=== PATIENT | female | born 1985 | race Caucasian/White ===

== ENCOUNTER 2023-10-16 10:58 | Emergency (ER) | payer OTHER, SELFPAY ==
[2023-10-16 12:20] VITALS: BP 137/86; PULSE 88; RESP 18; TEMP 36.7; O2SAT 98; BMI 25.7
[2023-10-16 12:43] LABS: UTC Strep Screen (Rapid) Positive (Negative)
--- NOTE | 2023-10-16 12:52 | ED_ITS ---
Discharge Plan Disposition Patient Disposition: Home, Self-Care Condition: Good Prescriptions Prescriptions: New amoxicillin 875 mg tablet 875 mg PO BID Qty: 20 0RF Referrals Follow up/Referrals: Reilly Nunes [Primary Care Provider] - See instructions Activity Restrictions/Add. Instructions Additional Instructions/Restrictions: *Monitor Temp, Over the counter Motrin or Tylenol as directed/as needed Tylenol every 4 hours and Motrin every 6 hours (as long as your family doctor has told you that you can take it) for fever or pain. and straight to ER if unable to lower temp less than 101.0 after medication given *Warm salt water gargles may help to soothe the throat *Throat Lozenges? *Warm fluids like tea with honey may help to soothe the throat? *Sleep elevated *Humidifier/Vaporizer *If you did not take Penicillin shot or was unable to, start taking antibiotic immediately and make sure that you take it for the FULL length of time although you should start to feel better in 24-48 hours *change toothbrush and toothpaste 24-48 hours after starting to take antibiotics so you do not reinfect yourself Monitor Temp. Tylenol and/or Ibuprofen as needed. ER if fever is no less than 101 despite alternating Tylenol and Ibuprofen * Encourage fluids, water, Gatorade, powerade, pedialyte if /toddler/or child *Cold fluids, popsicles and ice cream may feel good on his throat Follow up IMMEDIATELY for new or worsening symptoms or no Noticeable improvement over the next 48-72 hours. 911 for difficulty breathing or swallowing Clinical Impressions Clinical Impression: Strep throat Instructions Patient Instructions: DI for Strep Throat, Strep Throat Discharge ED Provider: Sparkle Dias [facility] [place] HPI General Stated complaint: sore throat, ear pain Mode of Arrival: Ambulatory Source of Information: Patient Limitations: No Limitations Time Seen by Provider: 10/16/23 12:52 Description of Symptoms (Recalled from Triage Doc. by RN): PATIENT C/O SORE THROAT X 2 DAYS HEENT Symptoms (Recalled from RN notes): Yes Resp Symptoms (Recalled from RN notes): No Skin Symptoms (Recalled from RN notes): No MS Symptoms (Recalled from RN notes): No Functional Status (Recalled from RN notes): WNL History of Present Illness Provider Complaint: Patient states that she has had sore throat for the last couple of days and pain and pressure in her ears states that she feels like she has strep throat Related Data Previous Rx's Medication Instructions Recorded amoxicillin 875 mg tablet 875 mg PO BID #20 tabs 10/16/23 Allergies Allergy/AdvReac Type Severity Reaction Status Date / Time No Known Allergies Allergy Verified 05/22/23 09:47 Worker's Comp Is this a Worker's Comp case?: No [facility]SH [facility] Disclaimer: The information contained in this section may have been updated after the patient was seen, as this information can be updated by other users. Social History Smoking Status: Unknown if ever smoked alcohol intake: never current occupational status: employed Travel in the last 8 weeks: None ROS Obtained: Yes All systems reviewed & no additional complaints except as doc umented and Yes Systems reviewed as appropriate & no additional complaints except as documented Constitutional Constitutional: Reports system reviewed and no additional complaints, except as documented and Reports as per HPI ENT Ears, Nose, Mouth, and Throat: Reports system reviewed and no additional complaints, except as documented, Reports as per HPI, Reports otalgia and Reports sore throat Cardiovascular Cardiovascular: Reports system reviewed and no additional complaints, except as documented and Reports as per HPI Respiratory Respiratory: Reports system reviewed and no additional complaints, except as documented and Reports as per HPI Gastrointestinal Gastrointestingal: Reports system reviewed and no additional complaints, except as documented and as per HPI Physical Exam General General appearance: alert and in no apparent distress ENT ENT exam: Present mucous membranes moist Expanded ENT Exam TM/Canal exam: Right TM: erythema Throat exam: Present tonsillar erythema Respiratory Respiratory exam: Present normal lung sounds bilaterally; Absent respiratory distress or wheezes Cardiovascular Cardiovascular exam: Present regular rate, normal rhythm and normal heart sounds Abdominal Exam Abdominal exam: Present soft and normal bowel sounds; Absent distention or tenderness Neurological Exam Neurological exam: Present alert, oriented X3 and normal gait Medical Decision Making Lee Inquiry Pt receiving controlled substance: No Lee was queried for this patient: No Vital Signs: 10/16/23 12:20 Temperature 98.1 F Temperature Source Oral Pulse Rate [Left Brachial] 88 Respiratory Rate 18 Blood Pressure [Left Arm] 137/86 Blood Pressure Mean [Left Arm] 103 Blood Pressure Source [Left Arm] Automatic Cuff Blood Pressure Position [Left Arm] Sitting 02 Sat by Pulse Oximetry 98 Oxygen Delivery Method Room Air Lab Data Lab results reviewed: Yes I reviewed the patient's lab results. Lab Results 10/16/23 12:25: Strep Scn [facility] Positive A
[2023-10-16 13:00] VITALS: BP 137/86; PULSE 88; RESP 18; TEMP 36.7; O2SAT 98
== END 2023-10-16 13:03 | disposition home or self-care (01) ==
PROVIDERS: Emergency Provider Nurse Practitioner; PCP Pediatrics
DX: J02.0 Streptococcal pharyngitis (principal); R07.0 Pain in throat; H92.03 Otalgia, bilateral
CPT/HCPCS: 87880; 99204; 99212; G0463

== ENCOUNTER 2023-10-25 13:30 | Outpatient (CLI) | payer OTHER, SELFPAY ==
--- NOTE | 2023-10-25 13:34 | MM_ITS ---
PROCEDURE INFORMATION: Exam: Bilateral Screening 3D Mammography Exam date and time: 10/25/2023 1:26 PM Age: 37 years old Clinical indication: Screening examination TECHNIQUE: Imaging protocol: Bilateral Screening tomosynthesis and 2D mammography including computer-aided detection (CAD) when performed. COMPARISON: No relevant prior studies available. FINDINGS: MAMMOGRAPHY: Breast composition: The breasts are heterogeneously dense, which may obscure small masses. Mass: None. Architectural distortion: None. Calcifications: No suspicious calcifications. Asymmetric density: None. Skin thickening: None. Axillary adenopathy: None. Implants: Subpectoral silicone breast implants are present. The contours are smooth. IMPRESSION: No mammographic evidence of malignancy. Annual screening is recommended unless otherwise clinically indicated. ASSESSMENT: BI-RADS Category 1: Negative
== END 2023-10-25 23:59 ==
LOC: RAD 13:31
PROVIDERS: PCP Pediatrics; Visit Provider Pediatrics
DX: Z12.31 Encounter for screening mammogram for malignant neoplasm of breast (principal)
CPT/HCPCS: 77063; 77067

== ENCOUNTER 2024-07-03 16:15 | Emergency (ER) | payer OTHER, SELFPAY ==
--- NOTE | 2024-07-03 16:19 | XR_ITS ---
PROCEDURE INFORMATION: Exam: XR Right Wrist Exam date and time: 07/03/2024 4:42 PM Age: 38 years old Clinical indication: Pain; Wrist; Right TECHNIQUE: Imaging protocol: Radiologic exam of the right wrist. Views: 3 or more views. COMPARISON: CR Hand R 07/03/2024 4:40 PM FINDINGS: Bones/joints: Normal. Soft tissues: Normal. IMPRESSION: No acute findings.
--- NOTE | 2024-07-03 16:19 | XR_ITS ---
PROCEDURE INFORMATION: Exam: XR Right Hand Exam date and time: 07/03/2024 4:40 PM Age: 38 years old Clinical indication: Pain; Hand; Right TECHNIQUE: Imaging protocol: Radiologic exam of the right hand. Views: 3 or more views. COMPARISON: No relevant prior studies available. FINDINGS: Bones/joints: Normal. Soft tissues: Normal. IMPRESSION: No acute findings.
[2024-07-03 16:28] VITALS: BP 140/75; PULSE 78; RESP 18; TEMP 36.7; O2SAT 100; BMI 26.9
--- NOTE | 2024-07-03 16:30 | ED_ITS ---
Discharge Plan Disposition Patient Disposition: Home, Self-Care Condition: Good Referrals Follow up/Referrals: Reilly Nunes [Primary Care Provider] - See instructions Activity Restrictions/Add. Instructions Additional Instructions/Restrictions: *RICE, Rest the extremity, Ice 15-20 minutes 3-4 times daily, Compress- wear the julio wrap as discussed as much as possible to help reduce swelling and pain, Elevate the extremity when at rest *Julio wrap is for support and help control swelling, use it except in the shower. Be sure that is not to tight but not to loose either *Elevate when resting? *Ibuprofen 600-800mg every 6-8 hours as needed for pain an inflammation. If need something more can take Tylenol in between doses of Ibuprofen to help Immediately follow up with your family doctor for new or worsening of symptoms, or no noticeable improvement over the next 3-5 days Clinical Impressions Clinical Impression: Hand injury Qualifiers: Encounter type: initial encounter Laterality: right Qualified Code(s): S69.91XA - Unspecified injury of right wrist, hand and finger(s), initial encounter Instructions Patient Instructions: How To Perform RICE (Rest, Ice, Compress, Elevate), How to Apply an Julio Wrap Print Language Print Language: Icelandic Discharge ED Provider: Sparkle Dias [facility] [place] HPI General Stated complaint: WC11/13 RT hand inj Mode of Arrival: Ambulatory Source of Information: Patient Time Seen by Provider: 07/03/24 16:30 Description of Symptoms (Recalled from Triage Doc. 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 and jammed her right thumb against the wheel on the bed States that since then she has been having some bruising by her index finger and hurts when she tries to write so she came in to get it checked Related Data Allergies Allergy/AdvReac Type Severity Reaction Status Date / Time No Known Allergies Allergy Verified 05/22/23 09:47 Worker's Comp Is this a Worker's Comp case?: Yes Is this an H Worker's Comp?: No Is this a [place] Worker's Comp?: No [facility] Disclaimer: The information contained in this section may have been updated after the patient was seen, as this information can be updated by other users. Social History (Updated 10/16/23 @ 12:58 by Sparkle Dias APRN) Smoking Status: Unknown if ever smoked alcohol intake: never current occupational status: employed Travel in the last 8 weeks: None ROS Obtained: Yes All systems reviewed & no additional complaints except as documented and Yes Systems reviewed as appropriate & no additional complaints except as documented Constitutional Constitutional: Reports system reviewed and no additional complaints, except as documented and Reports as per HPI ENT Ears, Nose, Mouth, and Throat: Reports system reviewed and no additional complaints, except as documented and Reports as per HPI Cardiovascular Cardiovascular: Reports system reviewed and no additional complaints, except as documented and Reports as per HPI Respiratory Respiratory: Reports system reviewed and no additional complaints, except as documented and Reports as per HPI Gastrointestinal Gastrointestingal: Reports system reviewed and no additional complaints, except as documented and as per HPI Musculoskeletal Musculoskeletal: Reports system reviewed and no additional complaints, except as documented, Reports as per HPI and Reports other Comments: Pain in right hand, index finger and thumb Physical Exam General General appearance: alert and in no apparent distress ENT ENT exam: Present mucous membranes moist Respiratory Respiratory exam: Present normal lung sounds bilaterally; Absent respiratory distress or wheezes Cardiovascular Cardiovascular exam: Present regular rate, normal rhythm and normal heart sounds Expanded Upper Extremity Exam Right: Hand exam: Present tenderness and swelling Hand L/R back image: 2 1. reports tenderness and small bruise noted at base of index finger Neurological Exam Neurological exam: Present alert, oriented X3 and normal gait Medical Decision Making Medical Records Screening: Per USPSTF and CDC recommendations, given the prevalence of disease in our region, it is our hospital?s policy to screen for HIV and viral Hepatitis for all patients aged 18 and over and those with ongoing risk factors. Lee Inquiry Pt receiving controlled substance: No Lee was queried for this patient: No Vital Signs: 07/03/24 16:28 Temperature 98.1 F Temperature Source Oral Pulse Rate [Left Radial] 78 Respiratory Rate 18 Blood Pressure [Left Arm] 140/75 Blood Pressure Mean [Left Arm] 96 02 Sat by Pulse Oximetry 100 Orders (Tests/Meds): ORDERS Category Date Time Status Wrist XR right minimum 3 views [XR wrist RT min 3V] Exams 07/03/24 16:19 Ordered Stat XR hand RT min 3V Stat Exams 07/03/24 16:19 Ordered Radiology Data #1: Image(s): Hand Image Reviewed: Yes I have reviewed radiologist's interpretation IMPRESSION: No acute findings. #2: Image(s): Wrist Image Reviewed: Yes I have reviewed radiologist's interpretation IMPRESSION: No acute findings.
[2024-07-03 17:29] VITALS: BP 140/75; PULSE 78; RESP 18; TEMP 36.7
== END 2024-07-03 17:41 | disposition home or self-care (01) ==
PROVIDERS: Emergency Provider Nurse Practitioner; PCP Pediatrics
DX: S69.91XA Unspecified injury of right wrist, hand and finger(s), initial encounter (principal); S60.021A Contusion of right index finger without damage to nail, initial encounter; M79.644 Pain in right finger(s)
CPT/HCPCS: 73110; 73130; 99212; G0381

== ENCOUNTER 2024-09-04 19:00 | Emergency (ER) | payer OTHER, SELFPAY ==
[2024-09-04 19:02] VITALS: BP 129/93; PULSE 93; RESP 19; TEMP 36.9; O2SAT 99; BMI 26.4
--- NOTE | 2024-09-04 19:10 | ED_ITS ---
<Statement entered by Anju Bose DO - 09/04/24 23:54> I was consulted by the ADE, and we discussed the complexity of the problems being addressed. I approved the treatment and management plan for this patient's care in the emergency department, thus performing a substantive portion of the medical decision making. Anju Bose DO Discharge Plan Disposition Patient Disposition: Home, Self-Care Condition: Good Prescriptions Prescriptions: New lidocaine 5 % adhesive patch,medicated 1 patch topical DAILY Qty: 30 0RF Rx Instructions: leave on most painful area for up to 12 hrs Referrals Follow up/Referrals: Provider,Referral, MD [Primary Care Provider] - See instructions Activity Restrictions/Add. Instructions Additional Instructions/Restrictions: I have sent a lidocaine patch to your pharmacy. If you have continued or worsening symptoms follow-up with your PCP within 48 hours for reevaluation or return to the ER for any worsening signs or symptoms as needed as needed. Clinical Impressions Clinical Impression: Injury of thoracic spine Qualifiers: Encounter type: initial encounter Qualified Code(s): S24.109A - Unspecified injury at unspecified level of thoracic spinal cord, initial encounter Instructions Patient Instructions: DI for Thoracic Back Pain Print Language Print Language: Chilean Discharge ED Provider: Anju Bose General Adult HPI General Chief complaint: Back Pain/Injury Stated complaint: AO 1-14 back pain Time Seen by Provider: 09/04/24 19:06 History of Present Illness HPI narrative: Patient presents for midline upper back pain. 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 She did not feel any pain until she tried to stand up and felt sharp pain in the midline upper T-spine. She is had worsening pain since. She reports that the pain spreads laterally on both the left and right side and it feels like muscle spasms. If she moves her head in any way it is very painful and it triggers the muscle spasms. She denies however any numbness or tingling focal neurologic deficits loss of motor or sensory. She denies any nausea. She went to see a chiropractor who did an adjustment and it helped only briefly and then the pain returned. Her PCP prescribed her a muscle relaxer which has not helped. Tylenol and Motrin have not helped. She denies any chest pain shortness of breath fever chills hemoptysis hematochezia melena nausea vomit diarrhea. Related Data Previous Rx's ?Medication ?Instructions ?Recorded lidocaine 5 % topical patch 1 patch topical DAILY #30 ea 09/04/24 Allergies Allergy/AdvReac Type Severity Reaction Status Date / Time No Known Allergies Allergy Verified 05/22/23 09:47 [facility] Disclaimer: The information contained in this section may have been updated after the patient was seen, as this information can be updated by other users. Social History (Updated 10/16/23 @ 12:58 by Sparkle Dias APRN) Smoking Status: Current every day smoker alcohol intake: never current occupational status: employed Travel in the last 8 weeks: None Have you lived/traveled outside US in past 30 days?: No Contact w/someone who lives/traveled outside US past 30 days?: No Exposure to someone with infectious disease in past 14 days?: No Do you have a fever (greater than 100.4 F or 38 C)?: No Have you tested positive for COVID-19: No Exposed to someone with COVID-19 in past 14 days?: No Do you have a sore throat?: No Do you have a cough?: No Do you have any weakness?: No Do you have any diarrhea?: No Are you experiencing any unusual bleeding?: No Do you have any muscle aches/pain?: No Do you have any abdominal pain?: No Are you experiencing loss of taste or smell?: No Other Medical History Have you received the Flu Vaccine for this season: No Have you received the Pneumonia Vaccine: No ROS Obtained: Yes Systems reviewed as appropriate & no additional complaints except as documented Physical Exam General General appearance: alert and in no apparent distress Respiratory Respiratory exam: Present normal lung sounds bilaterally Cardiovascular Cardiovascular exam: Present regular rate Neurological Exam Neurological exam: Present alert, oriented X3, CN II-XII intact and normal gait; Absent motor sensory deficit Medical Decision Making Medical Records Screening: Per USPSTF and CDC recommendations, given the prevalence of disease in our region, it is our hospital?s policy to screen for HIV and viral Hepatitis for all patients aged 18 and over and those with ongoing risk factors. Lee Inquiry Pt receiving controlled substance: No Vital Signs: 09/04/24 19:02 09/04/24 19:15 09/04/24 19:30 Temperature 98.4 F Temperature Source Oral Pulse Rate 80 69 Pulse Rate [Left Radial] 93 H Respiratory Rate 19 Blood Pressure 118/91 H 120/83 Blood Pressure [Right Arm] 129/93 H Blood Pressure Mean [Right Arm] 105 02 Sat by Pulse Oximetry 99 99 100 Oxygen Delivery Method Room Air Orders (Tests/Meds): ED MEDICATIONS Discontinued Medications Generic Name Dose Route Start Last Admin Trade Name Freq PRN Reason Stop Dose Admin Diazepam 5 mg 09/04/24 19:23 09/04/24 19:49 Diazepam 5mg Tablet PO 09/04/24 19:24 5 mg ONCE ONE Administration ORDERS Category Date Time Status CT thoracic spine wo con Stat Cat Scan 09/04/24 19:23 Completed HIV Combo Stat Lab 09/04/24 19:12 Ordered Hepatitis C Ab Qual. W/ RFX Stat Lab 09/04/24 19:12 Ordered Medical Decision Narrative: In summary patient is a 38-year-old female who presents to the emergency department for evaluation of midline thoracic spine tenderness and upper back spasm. Patient is hemodynamically stable at 129/93 pulse 93 respiratory rate is 19 satting 99% on room air upon arrival, with a temperature of 98.4. Physical exam is remarkable for midline T-spine tenderness at approximately T3 that is the point of maximal tenderness and that I have marked with an ink pen. I do not feel any bony deformity. I do feel muscle spasm laterally on both the left and right side from this area. Patient's breath sounds are clear and equal bilaterally to the bases I do not feel any bony rib deformities. Patient is neurovascular intact with no focal neurologic deficits patient has full range of motion of her bilateral upper extremities. But raising her arms above her shoulders causes more pain in her back. I do not see any ecchymosis edema hematoma.. Differential diagnosis includes ligamentous injury versus fracture versus muscle tear [place]. Initial workup will be conducted with CT scan of the thoracic spine. Initial interventions include Valium. Initial workup reviewed by me and my informal trepidation of her imaging shows no acute T-spine bony injury. Upon reevaluation patient had only minor improvement after initial intervention. Given this patient is appropriate for discharge with a prescription for Lidoderm patch close follow-up with her PCP and if she has no improvement or worsening signs or symptoms she is to follow-up sooner or return to the ER she may need further imaging. Critical Care Critical Care Time Critical Care Time: No
[2024-09-04 19:15] VITALS: BP 118/91; PULSE 80; O2SAT 99
--- NOTE | 2024-09-04 19:23 | CT_ITS ---
PROCEDURE INFORMATION: Exam: CT Thoracic Spine Without Contrast Exam date and time: 09/04/2024 7:54 PM Age: 38 years old Clinical indication: Injury or trauma; Other: Moving patient at work; Work related; Other: Pain; Additional info: Upper midline thoracic spine pain TECHNIQUE: Imaging protocol: Computed tomography of the thoracic spine without contrast. Radiation optimization: All CT scans at this facility use at least one of these dose optimization techniques: automated exposure control; mA and/or kV adjustment per patient size (includes targeted exams where dose is matched to clinical indication); or iterative reconstruction. COMPARISON: No relevant prior studies available. FINDINGS: Bones/joints: No thoracic spine fracture or listhesis. No significant degenerative changes. Soft tissues: Unremarkable. Lymph nodes: Calcified left hilar lymph nodes. Lungs: Calcified granuloma in the left lower lobe. Gallbladder and biliary ducts: Status post cholecystectomy. IMPRESSION: No acute findings.
[2024-09-04 19:30] VITALS: BP 120/83; PULSE 69; O2SAT 100
[2024-09-04] MEDS: diazePAM 5MG TABLET 5 MG PO (19:49)
[2024-09-04 21:22] VITALS: BP 122/87; PULSE 72; RESP 16; TEMP 36.6; O2SAT 99
== END 2024-09-04 21:29 | disposition home or self-care (01) ==
PROVIDERS: Emergency Provider Emergency Medicine
DX: S24.109A Unspecified injury at unspecified level of thoracic spinal cord, initial encounter (principal); M54.9 Dorsalgia, unspecified; X50.0XXA Overexertion from strenuous movement or load, initial encounter; Y93.89 Activity, other specified; Y92.89 Other specified places as the place of occurrence of the external cause
CPT/HCPCS: 72128; 99284

== ENCOUNTER 2024-09-18 09:00 | Outpatient (RCR) | payer OTHER, SELFPAY ==
--- NOTE | 2024-09-16 09:02 | HMH.PTOPEV ---
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 Pt reports that as she was transferring him, the pt stopped helping and she had to pull up. She reports that her back spasmed and then settled around her bra line along the left side. She reports that it is now referring into her L shoulder along the shoulder blade. She reports that she has seen a chiro 3 times, with no particular remarkable results. She reports that she is currently off work due to this issue. She reports that she is having quite a bit of difficulty cleaning, doing laundry, and other restaurant crew member. She reports she saw Dr Minerva Szymanski who put her on a naproxen and a steroid. New diagnosis of cancer in past 12 No months? Chief Complaint Pain,Stiff,Catches/Locks Symptom Type Sharp,Shooting Symptoms Relieved By Rest/Positioning,Heat Symptoms Aggravated By Prone,Bending/Stooping, Twisting,Lifting Prior Functional Limitations None Current Functional Limitations Reaching,Lifting,Housework, Sleeping,Recreation Activity, Bending/Stooping Symptom Description Constant but Variable,Activity Dependent Level of pain today (0-10) 3 Pain scale - at its best (0-10) 3 Pain scale - at its worst (0-10) 9 Cervical Eval Palpation Cervical Muscles L Cervical Paraspinal,L CT Junction,L Upper Trapezius,L Thoracic Paraspinals Cervical/Thoracic Palpation Findings Tenderness Posture Head/C-Spine Posture Sitting Position Neutral Position Flexibility Deficits Upper Trapezius Muscle Length (L) Moderate Tightness Pectoralis Major Muscle Length (R) Moderate Tightness,(L) Moderate Tightness Passive Joint Mobility Cervical PIVM Dec: L C4/5 L C5/6 L C6/7 AROM Cervical Spine Extension Active Range of 30 Motion (degrees) Cervical Spine Flexion Active Range of 35 Motion (degrees) Cervical Spine Right Lateral Flexion 20 Active Range of Motion (degrees) Cervical Spine Left Lateral Flexion 24 Active Range of Motion (degrees) MMT Bilateral Deltoid (C5) 3+ Fair+ Biceps Brachii Strength Grade 5 Normal Wrist Extension Strength Grade 5 Normal Triceps Brachii Strength Grade 5 Normal Wrist Flexion Strength Grade 5 Normal Extensor Pollicis Longus Strength Grade 5 Normal DTR Rt Biceps 2+ Lt Biceps 2+ Rt Brachioradialis 2+ Lt Brachioradialis 2+ Rt Triceps 2+ Lt Triceps 2+ Altered Sensation Bilateral Upper extremity Dermatomes C4,C5,C6,C7,C8,T1 Comment INTACT Special Test C-Spine Foraminal Compression ([place]ling) Negative Left,Negative Right Test C-spine Verterbral Accessory Movements Left P/A [place] that Elicit Symptoms C-Spine Foraminal Distraction Test Negative C-Spine Compression Test Negative Left,Negative Right C-Spine Swallowing Test Negative Left Shoulder Abduction Relief Test Negative Left,Negative Right Shoulder Brachial Plexus Stretch Test Negative Left,Negative Right Lumbopelvic Eval Posture Thoracic Spine Posture Standing Position Increased Kyphosis Assistive device Assistive Devices None / NA Palapation tenderness left thoracic spinal tenderness Yes: 3/4 to T4-8 central and L side Neck Disability Index Neck Disability Index Section 1: Pain Intensity The pain is moderate at the moment Section 2: Personal Care (washing, I can look after myself dressing, etc.) normally but it causes extra pain Section 3: Lifting Pain prevents me from lifting heavy weights, but I can manage light to Section 4: Reading I can read as much as I want to with no pain in my neck Section 5: Headaches I have slight headaches, which come infrequently Section 6: Concentration I can concentrate fully when I want to with no difficulty Section 7: Work I cannot do my usual work Section 8: Driving I can drive my car as long as I want with slight pain in my neck Section 9: Sleeping My sleep is midly disturbed (1 -2 hrs sleepless) Section 10: Recreation I am able to engage in most, but not all of my usual recreation NDI Score 15 Miscellaneous Dx PT Eval Objective Objective L Rhomboid 2+/5 with pain reproduction Outpatient Therapy Assessment Impairments Problems/Impairmments Palpation Tenderness,Impaired Range of Motion,Impaired Strength,Impaired Lifting, Impaired Household Care, Impaired Work Activities, Subjective C/O Pain Prognosis Rehab Potential Good Comment w HEP Compliance Clinical Impression Consistent with Diagnosis Yes Consistent with T spine pain with mob deficits Additional details: Pt signs and symptoms are consistent with thoracic spine pain with mobility deficits. She presents with tenderness to palpation along her thoracic spine, weakness in her scapulothoracic musculature, and decreased cervical ROM grossly. 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 Skilled PT is indicated for this pt. Short Term Goals Number of Weeks 4 Decreased Palpation Tenderness Yes: 2/4 to T spine Increase Range of Motion Yes: C Spine 100% AROM Increase Strength Yes: 3/5 to Deltoid and Rhomboid L Improve Ability For Household Care Yes: normal cleaning activities without increasing pain Improve Neck Disability Index Score Yes: to 10 Decrease Subjective C/O Pain Yes: 5/10 with above activities Patient to be Ind w/ HEP Yes Senior Living Goals Number of Weeks 8 Decreased Palpation Tenderness Yes: 0-1/4 to Thoracic spine Increase Range of Motion Yes: Pec minor WNL Increase Strength Yes: 4-4+/5 to Deltoid and Rhomboid L Improve Tolerance to Work Activities Yes: Normal Job duties without increasing pain Improve Neck Disability Index Score Yes: to 5 Decrease Subjective C/O Pain Yes: 3/10 without increasing pain Patient to be Ind w/ Advanced HEP Yes Outpatient Therapy Plan of Care Treatment Plan May Include Therapeutic Exercise Including Home Yes Exercise Program Manual Therapy Techniques Yes Neuromuscular Re-education Yes Therapeutic Activities to Return to Yes Previous Functional/Work Level Gait Training Yes ADL/Self Care Education Yes Mechanical Traction Yes Dry Needling Yes Thermal Modalities Yes Electrical Stimulation Yes Ultrasound/Phonophoresis Yes Massage Yes Manual Lymphatic Drainage Yes Eval/Re-Eval Yes Frequency Times per week 2 Duration Number of Weeks 8 Addendums This patient is a candidate for social No or vocational rehab? Patient/Guardian verbally acknowledges Yes understanding of treatment program and consents to further treatment? Patient/Guardian verbally acknowledges Yes understanding of diagnosis, prognosis and goals for treatment? Eval Complexity PT Charges 05317 - Moderate Complexity Shoulder/Elbow Eval Shoulder Objective Measurements Elbow Objective Measurements PHYSICIAN CERTIFICATION: I certify the specified therapy services for Oriana Cuello are required, authorized, and reviewed every 30 days.
== END 2024-09-18 23:59 | disposition home or self-care (01) ==
LOC: PT 09:00
PROVIDERS: Visit Provider Nurse Practitioner Family
DX: M54.6 Pain in thoracic spine (principal); S29.012A Strain of muscle and tendon of back wall of thorax, initial encounter
CPT/HCPCS: 97014; 97110; 97140; 97163; 97530; G0283

== ENCOUNTER 2024-10-09 07:46 | Outpatient (CLI) | payer OTHER, SELFPAY ==
--- NOTE | 2024-10-09 07:47 | MR_ITS ---
FINAL REPORT TECHNIQUE: Multiplanar and multisequence MR imaging was obtained through the thoracic spine. CLINICAL HISTORY: WC-thoracic back pain with bilateral radicular sxs COMPARISON: None FINDINGS: There is normal alignment of the thoracic vertebral bodies in the sagittal plane. Vertebral body height is preserved. There is no bone marrow edema or pathologic marrow replacement. Signal intensity within the substance of the spinal cord is normal. No acute paraspinal abnormality. There is no focal disc herniation, central canal stenosis, or significant foraminal narrowing. IMPRESSION: Unremarkable MR of the thoracic spine without contrast. Reviewed, Interpreted and Dictated by Taylor Boone MD Transcribed by Esther Velazquez Authenticated and [facility]
== END 2024-10-09 23:59 | disposition home or self-care (01) ==
LOC: RAD 07:47
PROVIDERS: PCP Pediatrics; Visit Provider Nurse Practitioner
DX: M54.6 Pain in thoracic spine (principal); M79.2 Neuralgia and neuritis, unspecified; S29.012A Strain of muscle and tendon of back wall of thorax, initial encounter
CPT/HCPCS: 72146

== ENCOUNTER 2024-10-18 14:00 | Outpatient (RCR) | payer OTHER, SELFPAY ==
--- NOTE | 2024-10-14 11:37 | HMH.RHREAS ---
Rehab Reassessment Rehab OP Re-assessment Start: 09/23/24 08:48 Freq: Status: Active Protocol: Document 10/14/24 11:15 CECE (Rec: 10/14/24 11:37 CECE [id number]) E-signed By Edgar Ortiz PT Neck Disability Index Neck Disability Index Section 1: Pain Intensity The pain is moderate at the moment Section 2: Personal Care (washing, I can look after myself dressing, etc.) normally but it causes extra pain Section 3: Lifting Pain prevents me from lifting heavy weights, but I can manage light to Section 4: Reading I can read as much as I want to with no pain in my neck Section 5: Headaches I have slight headaches, which come infrequently Section 6: Concentration I can concentrate fully when I want to with no difficulty Section 7: Work I cannot do my usual work Section 8: Driving I can drive my car as long as I want with slight pain in my neck Section 9: Sleeping My sleep is slightly disturbed (less than 1 hr sleepless) Section 10: Recreation I am able to engage in most, but not all of my usual recreation NDI Score 14 Rehab Re-assessment Subjective Subjective Pt reports that she is approximately 50% improved since her initial evaluation. She reports that she was doing significantly better before she attempted to go back to work last week. She reports that at the end of the workday , her pain was the most intense it had been and has stayed more elevated since then. She reports that she is still doing better than she was prior to beginning therapy . She reports that she has been off work since then. She reports that her pain levels have improved, her neck, shoulder and back motion also seems improved. She reports that her pain reaches 4-5/10 with exercises. She reports that she continues to not be able to do minor daily activities such as cleaning. She reports that she has been doing her home exercises everyday. Objective Objective Notes JENIFER: 14 (15 on IE) TTP: 3/4 to T5 and T8 Spinous process. CROM: 100% without pain MMT: - Delt 4/5 - Rhomboids 3+/5 Assessment Progress Assessment Slower Than Expected Assessment Notes Pt has made some progress thus far, despite a recent set back when returning to work. Pt has demonstrated improvements in scapular strength, CROM and pain. However, she continues to demonstrate decrements in her tolerance to complete her activities of daily living. Skilled PT remains indicated for this pt to address her current impairments and to promote a return to her PLOF. Patient goals met ST, 3, 6, 7 LT Plan Plan Continue as per initial POC. Frequency of Therapy 2-3/week Duration of therapy 4 weeks Time and Billing Re-Eval Time 11 Re-Eval Billing Units 1 Charge for PT reassessment? Yes PHYSICIAN CERTIFICATION: I certify the specified therapy services for Oriana Cuello are required, authorized, and reviewed every 30 days.
== END 2024-10-18 23:59 | disposition home or self-care (01) ==
LOC: PT 14:00
PROVIDERS: Visit Provider Nurse Practitioner Family
DX: M54.6 Pain in thoracic spine (principal); S29.012A Strain of muscle and tendon of back wall of thorax, initial encounter
CPT/HCPCS: 97014; 97035; 97110; 97140; 97164; 97530; G0283

== ENCOUNTER 2024-10-31 16:00 | Outpatient (RCR) | payer OTHER, SELFPAY | END 2024-10-31 23:59 | disposition home or self-care (01) | LOC: PT 16:00 | PROVIDERS: Visit Provider Nurse Practitioner Family | DX: M54.9 Dorsalgia, unspecified (principal); S29.012A Strain of muscle and tendon of back wall of thorax, initial encounter | CPT/HCPCS: 97110; 97140; 97530 ==